=== PATIENT | male | born 1970 | race Caucasian/White ===

== ENCOUNTER 2025-07-24 10:26 | Inpatient (IN) | payer MEDICARE, OTHER ==
[~2025-07-24] VITALS: Ht 182.9 cm; Wt 88.3 kg
[2025-07-24] VITALS (13 sets, daily range): BP systolic 91–149; BP diastolic 56–89
[2025-07-24 11:18] LABS: BASOPHILS ABSOLUTE AUTO 0.17 K/mm3 (0.00-0.23); BASOPHILS PERCENT AUTO 2 % (0-2); EOSINOPHILS ABSOLUTE AUTO 0.33 K/mm3 (0.00-0.68); EOSINOPHILS PERCENT AUTO 4 % (0-6); Hematocrit 46.0 % (37.0-53.0); Hemoglobin 15.1 g/dL (13.5-17.5); IMMATURE GRAN ABSOLUTE AUTO 0.17 K/mm3 (0.00-0.10); IMMATURE GRAN PERCENT AUTO 2 % (0-1); LYMPHOCYTES ABSOLUTE AUTO 0.74 K/mm3 (0.84-5.20); LYMPHOCYTES PERCENT AUTO 9 % (21-46); MONOCYTES ABSOLUTE AUTO 0.49 K/mm3 (0.16-1.47); MONOCYTES PERCENT AUTO 6 % (4-13); Mean Corpuscular HGB Conc 32.8 g/dL (31.5-36.5); Mean Corpuscular Volume 83 fL (80-100); NEUTROPHILS ABSOLUTE AUTO 6.13 K/mm3 (1.96-9.15); NEUTROPHILS PERCENT AUTO 76 % (41-73); NRBC ABSOLUTE 0.05 K/mm3 (0.00-0.02); NRBC Auto 0.6 /100 WBC (0.0-0.2); Platelet Count 279 K/mm3 (150-400); RDW Coefficient Variation 18.7 % (11.7-14.2); RDW Standard Deviation 56.0 fL (35.1-46.3)
[2025-07-24 11:36] LABS: Alanine Aminotransfer (ALT/SGP 24.0 U/L (12-78); Albumin, Blood 3.7 g/dL (3.4-5.0); Albumin/Globulin Ratio 1.1 (0.8-1.8); Anion Gap 9.0 mmol/L (3-11); Aspartate Aminotrans (AST/SGOT 19.0 U/L (12-37); Bilirubin, Total 0.4 mg/dL (0.1-1.0); Blood Urea Nitrogen 15.0 mg/dL (8-24); CO2, Blood 26.0 mmol/L (21-32); Calcium, Blood 9.0 mg/dL (8.5-10.1); Chloride, Blood 104.0 mmol/L (98-108); Creatinine, Blood 1.34 mg/dL (0.60-1.20); Globulin, Blood 3.4 g/dL (2.2-4.0); Glucose, Blood 283.0 mg/dL (70-99); Potassium, Blood 4.1 mmol/L (3.5-5.5); Sodium, Blood 135.0 mmol/L (136-145); Total Protein, Blood 7.1 g/dL (6.4-8.2)
[2025-07-24] MEDS ORDERED: Dose Adjust by Pharmacy XX STA (12:31)
[2025-07-24] MEDS ORDERED: Heparin Sodium 5000 Units/ML 1ML MDV IV ONE ×2 (12:35→19:55)
[2025-07-24 12:39] LABS: Anti-Xa UFH, PHA Monitoring <0.10 IU/mL; Prothrombin Time Results 13.0 Sec (9.7-11.5)
[2025-07-24] MEDS ORDERED: Heparin Sodium,Porcine/0.5 NS 500 ML IV SCH (13:00)
[2025-07-24] MEDS ORDERED: CLOP75 PO (13:43)
[2025-07-24] MEDS ORDERED: NAPR500EC PO (13:44)
[2025-07-24] MEDS ORDERED: PANT40 PO (13:44)
[2025-07-24] MEDS ORDERED: ASPIR 8181 M1 PO (13:45)
[2025-07-24] MEDS ORDERED: METO25ER PO (13:45)
[2025-07-24] MEDS ORDERED: ATOR80 PO (13:46)
[2025-07-24 14:05] LABS: CHOL/HDL RATIO 3.4; Cholesterol 122 mg/dL (50-200); HDL Cholesterol 36 mg/dL (>39); LDL/HDL RATIO 1.7; Low Density Lipoprotein Chol 63 mg/dL (0-110); Magnesium, Blood 2.1 mg/dL (1.6-2.4); Thyroid Stimulating Hormone 2.470 uIU/mL (0.360-4.800); Triglycerides 117 mg/dL (30-160); Very Low Density Lipoprot Chol 23 mg/dL (6-32)
[2025-07-24] MEDS ORDERED: HydrALAZINE HCl 20 MG / ML 1ML Vial IV PRN (14:05)
[2025-07-24] MEDS ORDERED: NS 1,000 ML IV SCH (16:00)
--- NOTE | 2025-07-24 18:00 | NUR ---
ADMISSION/SHIFT SUMMARY: PT IS A NEW ADMIT, ARRIVING F/ ER AT APPROX 1445. PT ARRIVES A&Ox4, ANSWERS QUESTIONS APPROPRIATELY, IS COOPERATIVE W/CARE. PT DENIES SOB, O2 SATS >93% ON RA. PT CONTINUES TO DENY CP SINCE ARRIVAL TO UNIT, SB/SR ON MONITOR, RATE 50s-60s, HEPARIN AND NS INFUSING PER ORDERS. GI/ WNL. PT AND FAMILY UPDATED RE: PLAN FOR ECHO AND STRESS TEST TOMORROW (07/25), PT V/U. CALL LIGHT WITHIN REACH.
[2025-07-25] VITALS (7 sets, daily range): BP systolic 119–153; BP diastolic 74–95
[2025-07-25 02:11] LABS: BASOPHILS ABSOLUTE AUTO 0.15 K/mm3 (0.00-0.23); BASOPHILS PERCENT AUTO 2 % (0-2); EOSINOPHILS ABSOLUTE AUTO 0.26 K/mm3 (0.00-0.68); EOSINOPHILS PERCENT AUTO 4 % (0-6); Hematocrit 41.3 % (37.0-53.0); Hemoglobin 13.5 g/dL (13.5-17.5); IMMATURE GRAN ABSOLUTE AUTO 0.30 K/mm3 (0.00-0.10); IMMATURE GRAN PERCENT AUTO 5 % (0-1); LYMPHOCYTES ABSOLUTE AUTO 0.88 K/mm3 (0.84-5.20); LYMPHOCYTES PERCENT AUTO 13 % (21-46); MONOCYTES ABSOLUTE AUTO 0.49 K/mm3 (0.16-1.47); MONOCYTES PERCENT AUTO 7 % (4-13); Mean Corpuscular HGB Conc 32.7 g/dL (31.5-36.5); Mean Corpuscular Volume 84 fL (80-100); NEUTROPHILS ABSOLUTE AUTO 4.60 K/mm3 (1.96-9.15); NEUTROPHILS PERCENT AUTO 69 % (41-73); NRBC ABSOLUTE 0.06 K/mm3 (0.00-0.02); NRBC Auto 0.9 /100 WBC (0.0-0.2); Platelet Count 266 K/mm3 (150-400); RDW Coefficient Variation 18.7 % (11.7-14.2); RDW Standard Deviation 56.7 fL (35.1-46.3)
[2025-07-25 02:29] LABS: Alanine Aminotransfer (ALT/SGP 21.0 U/L (12-78); Albumin, Blood 3.1 g/dL (3.4-5.0); Albumin/Globulin Ratio 1.1 (0.8-1.8); Anion Gap 8.0 mmol/L (3-11); Aspartate Aminotrans (AST/SGOT 20.0 U/L (12-37); Bilirubin, Total 0.3 mg/dL (0.1-1.0); Blood Urea Nitrogen 15.0 mg/dL (8-24); CO2, Blood 27.0 mmol/L (21-32); Calcium, Blood 8.3 mg/dL (8.5-10.1); Chloride, Blood 108.0 mmol/L (98-108); Creatinine, Blood 1.29 mg/dL (0.60-1.20); Globulin, Blood 2.8 g/dL (2.2-4.0); Glucose, Blood 170.0 mg/dL (70-99); Potassium, Blood 3.8 mmol/L (3.5-5.5); Sodium, Blood 139.0 mmol/L (136-145); Total Protein, Blood 5.9 g/dL (6.4-8.2)
[2025-07-25] MEDS ORDERED: Clarify Drug Order XX ONE ×2 (02:45→22:45)
--- NOTE | 2025-07-25 07:24 | NUR ---
SHIFT SUMMARY LILIYA IS A&OX4, PLEASANT AND APPRECIATIVE OF CARE. VSS ON RA. SB-SR 40'S-60'S. DENIES PAIN. HEPARIN GTT TITRATED PER ORDER. TOLERATING A REGULAR DIET, ONLY SIPS OF WATER AFTER MN FOR STRESS TEST THIS MORNING. PT IS A CURRENT EVERY DAY SMOKER, EXPRESSED THE IMPORTANCE OF CESSATION, PT NOT INTERESTED AT THIS TIME. PT WAS ALSO OFFERED NICOTINE REPLACEMENT, PT CURRENTLY DENIES THE NEED. PT IS ALSO IN THE ADAPT PROGRAM, 1 MONTH CLEAN FROM METH USE. INDEPENDENT TO BR. PT VOIDING LARGE AMOUNTS OF YELLOW URINE IN URINAL. NO BM THIS SHIFT. REPOSITIONS HIMSELF IN BED. BED IN LOWEST POSITION, CALL LIGHT WITHIN REACH. CALLS APPROPRIATELY AND IS ABLE TO ADVOCATE NEEDS EFFECTIVELY.
[2025-07-25] MEDS ORDERED: Dose Adjust by Pharmacy XX STA (08:44)
[2025-07-25] MEDS ORDERED: Heparin Sodium 5000 Units/ML 1ML MDV IV ONE (08:45)
[2025-07-26] MEDS ORDERED: Insulin Regular 100 UNIT/ML 10ML Vial SC SCH
[2025-07-26 04:12] VITALS: BP 118/71
[2025-07-26 04:32] LABS: Hematocrit 40.1 % (37.0-53.0); Hemoglobin 13.1 g/dL (13.5-17.5); Platelet Count 306 K/mm3 (150-400)
[2025-07-26 04:58] LABS: Anion Gap 7.0 mmol/L (3-11); Blood Urea Nitrogen 12.0 mg/dL (8-24); CO2, Blood 26.0 mmol/L (21-32); Calcium, Blood 8.1 mg/dL (8.5-10.1); Chloride, Blood 109.0 mmol/L (98-108); Creatinine, Blood 1.34 mg/dL (0.60-1.20); Glucose, Blood 171.0 mg/dL (70-99); Potassium, Blood 3.8 mmol/L (3.5-5.5); Sodium, Blood 138.0 mmol/L (136-145)
[2025-07-26] MEDS ORDERED: Clarify Drug Order XX ONE (05:50)
--- NOTE | 2025-07-26 06:38 | NUR ---
SHIFT SUMMARY: LILIYA IS A&OX4, PLEASANT AND APPRECIATIVE OF CARE. VSS ON RA. SB-SR 40'S-60'S. DENIES PAIN. PT WAS AWAKE MOST OF THIS SHIFT, WORRYING ABOUT TEST FOR TODAY. THIS RN GOT AN ORDER FOR 5 MG PO MELATONIN, ADMINISTERED AND NO RESULTS. PT STATES HE HAS TRIED THIS IN THE PAST AND IT DIDN T WORK. BLOOD SUGARS CHECKED Q6, NO INSULIN GIVEN. HEPARIN GTT TITRATED PER ORDER. TOLERATING A REGULAR DIET, NPO AFTER MN FOR A POSSIBLE ANGIO TODAY. INDEPENDENT TO BR. PT VOIDING LARGE AMOUNTS OF YELLOW URINE IN URINAL. NO BM THIS SHIFT. REPOSITIONS HIMSELF IN BED. BED IN LOWEST POSITION, CALL LIGHT WITHIN REACH. CALLS APPROPRIATELY AND IS ABLE TO ADVOCATE NEEDS EFFECTIVELY.
[2025-07-26 07:50] VITALS: BP 118/74
[2025-07-26 11:03] LABS: LDL/HDL RATIO 1.4
[2025-07-26 11:04] LABS: CHOL/HDL RATIO 4.8; Cholesterol 120 mg/dL (50-200); HDL Cholesterol 25 mg/dL (>39); Low Density Lipoprotein Chol 34 mg/dL (0-110); Triglycerides 303 mg/dL (30-160); Very Low Density Lipoprot Chol 60 mg/dL (6-32)
[2025-07-26] MEDS ORDERED: NS 1,000 ML IV ONE ×2 (11:49→12:12)
[2025-07-26] MEDS ORDERED: Verapamil HCL 2.5 MG/ML 2ML Injection ONE (11:49)
[2025-07-26] MEDS ORDERED: NS 250 ML IV ONE (11:49)
[2025-07-26] MEDS ORDERED: Heparin Sodium 1000 Units/ML 10ML MDV ONE (11:49)
[2025-07-26] MEDS ORDERED: Midazolam HCl 1MG / ML 2ML Vial ONE (12:11)
[2025-07-26] MEDS ORDERED: FentaNYL Citrate 50 MCG/ML 2 ML Injection ONE (12:11)
[2025-07-26] MEDS ORDERED: NiCARdipine HCL 1,000 MCG/5 ML SYR ONE (12:25)
[2025-07-26 12:49] VITALS: BP 126/80
--- NOTE | 2025-07-26 12:49 | NUR ---
Pt brought back to PCU-[facility] by bed from [facility]. R radial TRB in place. Site WNL. Arm board in place. Pt A&O x4. VSS. Spo2 > 92% on RA. Monitor showing SB, HR 50s. Pt denying pain/discomfort, requesting food & coffee.
[2025-07-26 17:12] VITALS: BP 119/65
[2025-07-26] MEDS ORDERED: AMLO5 PO (18:20)
--- NOTE | 2025-07-26 19:22 | NUR ---
SHIFT SUMMARY PATIENT AOX4 ABLE TO MAKE NEEDS KNOWN HE DENIES POR SOB. HE IS INDEP TO HE RESTROOM AND TOLERATNG HIS MEALS. 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 PATIENT EDUCATED ON ALL DISCHARGE INSTRUCTIONS AND RADIAL SITE PROCAUTIONS.
== END 2025-07-26 18:30 | disposition home or self-care (01) | DRG 282 ==
LOC: ER 10:26 → PCU 13:14 → ER 13:14 → PCU 14:31
PROVIDERS: Emergency Medicine; Internal Medicine; Student in an Organized Health Care Education/Training Program; ADMIT Family Medicine
PROC: B2111ZZ Fluoroscopy of Multiple Coronary Arteries using Low Osmolar Contrast (ICD-10-PCS; principal; 2025-07-26)
DX: T82.897A Other specified complication of cardiac prosthetic devices, implants and grafts, initial encounter (principal); I21.A9 Other myocardial infarction type; Y71.2 Prosthetic and other implants, materials and accessory cardiovascular devices associated with adverse incidents; I10 Essential (primary) hypertension; E78.5 Hyperlipidemia, unspecified; K21.9 Gastro-esophageal reflux disease without esophagitis; I25.10 Atherosclerotic heart disease of native coronary artery without angina pectoris; E11.65 Type 2 diabetes mellitus with hyperglycemia; R00.1 Bradycardia, unspecified; I25.2 Old myocardial infarction; Z88.0 Allergy status to penicillin; Z88.6 Allergy status to analgesic agent; Z88.8 Allergy status to other drugs, medicaments and biological substances; Z79.82 Long term (current) use of aspirin; Z79.02 Long term (current) use of antithrombotics/antiplatelets; Z79.1 Long term (current) use of non-steroidal anti-inflammatories (NSAID); Z72.0 Tobacco use
CPT/HCPCS: 36415; 71046; 76937; 78452; 80048; 80053; 80061; 82947; 83036; 83735; 83880; 84443; 84484; 85014; 85018; 85025; 85049; 85520; 85610; 93005; 93010; 93017; 93306; 93454; 93458; 96365; 96366; 99152; 99285-25; A9270; A9500; C1769; C1887; C1894; G0378; J0461; J0706; J1644; J2250; J2785; J3010; J7030; J7050; Q9967